=== PATIENT | female | born 1975 | race American Indian/Alaskan Native ===

== ENCOUNTER 2020-09-28 08:11 | Inpatient (IN) | payer OTHER ==
[2020-09-28 10:03] LABS: Basophils % (Auto) 0.6 % (0.0-1.8); Eosinophils # (Auto) 0.1 K/mm3 (0.0-0.4); Eosinophils % (Auto) 0.9 % (0.0-4.3); Hematocrit 35.4 % (30.3-42.9); Hemoglobin 12.4 gm/dl (10.1-14.3); Lymphocytes % (Auto) 16.9 % (13.4-35.0); Mean Corpuscular HGB Conc 35 % (30-34); Mean Corpuscular Volume 92 fl (79-97); Monocytes # (Auto) 0.6 K/mm3 (0.0-0.8); Monocytes % (Auto) 9.4 % (0.0-7.3); Platelet Count 180 K/mm3 (140-440); Red Blood Count 3.87 M/mm3 (3.65-5.03); Red Cell Distribution Width 17.6 % (13.2-15.2)
[2020-09-28] MEDS ORDERED: LIDOCAINE (2%) 20 MG/1 ML VIAL 20 ML MDV INFILTRATI SCH (10:30)
[2020-09-28] MEDS ORDERED: MINERAL OIL 30 ML ORAL LIQD PO PRN (10:30)
[2020-09-28] MEDS ORDERED: LACTATED RINGERS 1,000 ML IV SCH (10:30)
[2020-09-28] MEDS ORDERED: OXYTOCIN DRIP 30 UNITS/500 ML BAG IV SCH ×2 (11:00)
[2020-09-28] MEDS ORDERED: TERBUTALINE 1 MG/1 ML INJ SUB-Q PRN (11:00)
[2020-09-28] MEDS ORDERED: miSOPROStol 25 MCG TAB VG PRN (11:00)
[2020-09-28] MEDS ORDERED: ePHEDrine SULFATE 50 MG/1 ML INJ IV PRN (11:00)
[2020-09-28] MEDS ORDERED: DINOPROSTONE 10 MG VAG SUPP VG ONE (18:00)
[2020-09-28 18:18] LABS: Hematocrit 38.9 % (30.3-42.9); Hemoglobin 12.9 gm/dl (10.1-14.3); Mean Corpuscular HGB Conc 33 % (30-34); Mean Corpuscular Volume 93 fl (79-97); Platelet Count 187 K/mm3 (140-440); Red Cell Distribution Width 17.6 % (13.2-15.2)
[2020-09-28 18:38] LABS: Alanine Aminotransferase 15 units/L (7-56); Uric Acid 4.3 mg/dL (3.5-7.6)
[2020-09-28 19:20] LABS: Bacteria,Urine 2+ /HPF (Negative); Bilirubin,Urine NEG (Negative); Blood,Urine NEG (Negative); Color,Urine Yellow (Yellow); Mucus,Urine FEW /HPF; Urobilinogen,Urine < 2.0 mg/dL (<2.0)
[2020-09-28] MEDS: BUTORPHANOL 2 MG/1 ML INJ IV PRN ×2 (21:02→22:46)
[2020-09-28] MEDS ORDERED: ZOLPIDEM 5 MG TAB PO PRN (21:09)
[2020-09-29] MEDS: BUTORPHANOL 2 MG/1 ML INJ IV PRN ×2 (00:48→04:30)
[2020-09-29] MEDS ORDERED: BICITRA ORAL LIQD 30ML PO ONE (05:09)
--- NOTE | 2020-09-29 05:33 | Anesthesia Day of Surgery ---
Anesthesia Day of Surgery - Day of Surgery Patient Examined: Yes Patient H&P Reviewed: Yes Patient is NPO: Yes Beta Blockers: No Cardiac Clearance: No Pulmonary Clearance: No Edmar's Test: N/A
[2020-09-29] MEDS ORDERED: NALOXONE 0.4 MG/1 ML INJ IV PRN ×2 (05:35→06:00)
[2020-09-29] MEDS ORDERED: ONDANSETRON 4 MG/2 ML INJ IV PRN (05:35)
[2020-09-29] MEDS ORDERED: HYDROmorphone 1 MG/1 ML INJ IV PRN (05:35)
--- NOTE | 2020-09-29 05:35 | Anesthesia Consultation ---
Anesthesia Consult and Med Hx Date of service: 09/29/20 - Airway Anesthetic Teeth Evaluation: Caps ROM Head & Neck: Adequate Mental/Hyoid Distance: Adequate Mallampati Class: Class II Intubation Access Assessment: Probably Good - Pulmonary Exam CTA: Yes - Cardiac Exam Cardiac Exam: RRR - Pre-Operative Health Status ASA Pre-Surgery Classification: ASA2, Emergency Proposed Anesthetic Plan: Spinal - Pulmonary Hx Smoking: No Hx Asthma: Yes (exercise induced) Hx Respiratory Symptoms: No SOB: No COPD: No Home Oxygen Therapy: No Hx Pneumonia: No Hx Sleep Apnea: No - Cardiovascular System Hx Hypertension: No Hx Coronary Artery Disease: No Hx Heart Attack/AMI: No Hx Angina: No Hx Percutaneous Transluminal Coronary Angioplasty (PTCA): No Hx Cardia Arrhythmia: No Hx Pacemaker: No Hx Internal Defibrillator: No Hx Valvular Heart Disease: No Hx Heart Murmur: No Hx Peripheral Vascular Disease: No - Central Nervous System Hx Neuromuscular Disorder: No Hx Seizures: No CVA: No Hx Back Pain: No Hx Psychiatric Problems: No - Gastrointestinal Hx Ulcer: No Hx Gastroesophageal Reflux Disease: Yes - Endocrine Hx Renal Disease: No Hx End Stage Renal Disease: No Hx Cirrhosis: No Hx Liver Disease: No Hx Insulin Dependent Diabetes: No Hx Non-Insulin Dependent Diabetes: Yes (gestational ) Hx Thyroid Disease: No Hx Hypothyroidism: No Hx Hyperthyroidism: No - Hematic Hx Anemia: No Hx Sickle Cell Disease: No - Other Systems Hx Alcohol Use: Yes (socially prior to ) Hx Substance Use: No Hx Cancer: No Hx Obesity: No
--- NOTE | 2020-09-29 05:59 | Procedure Note ---
OB Delivery Note - Delivery Date of Delivery: 09/29/20 Surgeon: DUSTIN DICKSON Estimated blood loss: 200cc - Vaginal Delivery presentation: vertex Delivery position: OA Intrapartum events: mult. late decelerations Delivery monitor: external FHT, external uterine Route of delivery: Delivery placenta: spontaneous Delivery cord: 3 umbilical vessels Episiotomy: none Delivery laceration: 2nd degree Delivery repair: vicryl Anesthesia: local Delivery comments: The patient was taken back to the operating room to proceed with a primary delivery for nonreassuring heart rate tracing. While the patient was attempting to receive her anesthesia she complained of the urge to push. Vaginal exam was performed that demonstrated the patient was complete complete +2. The patient pushed to deliver a live-born female infant with Apgars of 7 and 8 weight 6 pounds 8 ounces. After delivery of the head the shoulders delivered without difficulty. The infant was bulb suctioned and the cord was clamped and cut and the infant was placed on the patient's abdomen. The placenta delivered spontaneously intact with a three-vessel cord. The patient sustained a midline second-degree perineal laceration that was injected with lidocaine and repaired with 2-0 Vicryl in normal fashion. Estimated blood loss of 200 mL. - Infant A at 1 minute: 7 at 5 minutes: 8 Infant Gender: Female (Weight 6 pounds 8 ounces)
--- NOTE | 2020-09-29 05:59 | History and Physical Report ---
History of Present Illness Date of examination: 09/28/20 Date of admission: 09/28/20 08:11 Chief complaint: IOL History of present illness: 44y/o @ 39+2 weeks being induced for GDM and advanced maternal age. course also complicated by Covid X during the . The patient initiated her care in the first trimester. Past History Past Medical History: asthma, other Past Surgical History: no surgical history Social history: - Obstetrical History Expected Date of Delivery: 10/03/20 Actual Gestation: 39 Week(s) 3 Day(s) : 1 Para: 0 Hx # Term Pregnancies: 0 Number of Pregnancies: 0 Spontaneous Abortions: 0 Induced : 0 Number of Living Children: 0 Medications and Allergies Allergies Allergy/AdvReac Type Severity Reaction Status Date / Time Penicillins Allergy Hives Verified 09/28/20 08:33 Home Medications Medication Instructions Recorded Confirmed Last Taken Type Aspirin [Adult Aspirin] 81 mg PO DAILY 09/28/20 09/28/20 09/27/20 History Vitamin 1 tab PO DAILY 09/28/20 09/28/20 09/27/20 History Vitamin D3 2,000 UNIT CAP 2,000 units PO DAILY 09/28/20 09/28/20 09/27/20 Hi story Active Meds: Active Medications Butorphanol Tartrate (Butorphanol 2 Mg/1 Ml Inj) 2 mg IV Q2H PRN PRN Reason: Labor Pain Last Admin: 09/29/20 04:30 Dose: 2 mg Documented by: Ephedrine Sulfate (Ephedrine Sulfate 50 Mg/1 Ml Inj) 10 mg IV Q2M PRN PRN Reason: Hypotension Famotidine (Famotidine 20 Mg/2 Ml Inj) 20 mg IV PREOP NR Stop: 09/29/20 23:59 Last Admin: 09/29/20 05:19 Dose: 20 mg Documented by: Fluconazole (Fluconazole 100 Mg Tab) 150 mg PO QDAY FLORI; Protocol Hydromorphone HCl (Hydromorphone 1 Mg/1 Ml Inj) 0.5 mg IV Q5M PRN PRN Reason: BREAK Stop: 09/29/20 23:59 Oxytocin/Sodium Chloride (Pitocin/Ns 30 Unit/500ml) 30 units in 500 mls @ 2 mls/hr IV TITR FLORI; Protocol Lactated Ringer's (Lactated Ringers) 1,000 mls @ 125 mls/hr IV DIRECT FLORI Last Admin: 09/28/20 12:59 Dose: 125 mls/hr Documented by: Oxytocin/Sodium Chloride (Pitocin/Ns 30 Unit/500ml) 30 units in 500 mls @ 40 mls/hr IV TITR FLORI; Protocol Clindamycin HCl (Cleocin 900 Mg/50 Ml) 900 mg in 50 mls @ 100 mls/hr IV PREOP NR; Protocol Stop: 09/29/20 23:59 Lidocaine (Lidocaine (2%) 20 Mg/1 Ml Vial 20 Ml Mdv) 20 ml INFILTRATI ONCE FLORI Stop: 09/29/20 10:29 Metoclopramide HCl (Metoclopramide 10 Mg/2 Ml Inj) 10 mg IV PREOP NR Stop: 09/29/20 23:59 Last Admin: 09/29/20 05:19 Dose: 10 mg Documented by: Mineral Oil (Mineral Oil 30 Ml Oral Liqd) 30 ml PO QHS PRN PRN Reason: Constipation Misoprostol (Misoprostol 25 Mcg Tab) 25 mcg VG Q4H PRN PRN Reason: Dilation Last Admin: 09/28/20 12:24 Dose: 25 mcg Documented by: Naloxone HCl (Naloxone 0.4 Mg/1 Ml Inj) 0.2 mg IV Q2MIN PRN PRN Reason: Res Rate </= 8 or 02 SAT < 92% Ondansetron HCl (Ondansetron 4 Mg/2 Ml Inj) 4 mg IV Q8H PRN PRN Reason: Nausea And Vomiting Terbutaline Sulfate (Terbutaline 1 Mg/1 Ml Inj) 0.25 mg SUB-Q ONCE PRN PRN Reason: Hyperstimulation/Hypertonicity Zolpidem Tartrate (Zolpidem 5 Mg Tab) 5 mg PO QHS PRN PRN Reason: Sleep Last Admin: 09/28/20 21:14 Dose: 5 mg Documented by: Review of Systems All systems: negative Genitourinary: no leakage of fluid, no contractions - Vital Signs Vital signs: Vital Signs Temp Pulse Resp BP 98.0 F 101 H 18 140/84 09/28/20 08:36 09/28/20 08:36 09/28/20 08:36 09/28/20 08:36 Temp Pulse Resp BP Pulse Ox 98.1 F 98 H 12 137/69 99 09/29/20 02:55 09/29/20 05:52 09/28/20 18:53 09/29/20 02:55 09/29/20 05:52 - Physical Exam Breasts: Positive: deferred Cardiovascular: Regular rate Lungs: Positive: Clear to auscultation Abdomen: Positive: normal appearance Results Result Diagrams: 09/28/20 18:01 09/28/20 18:04 Abnormal lab results 09/28/20 09/28/20 09/28/20 Range/Units 09:20 18:01 19:38 MCHC 35 H (30-34) % RDW 17.6 H 17.6 H (13.2-15.2) % Trigg % (Auto) 9.4 H (0.0-7.3) % Lymph # (Auto) 1.0 L (1.2-5.4) K/mm3 Seg Neutrophils % 72.2 H (40.0-70.0) % POC Glucose 122 H (70-105) mg/dL All other labs normal. Assessment and Plan - Patient Problems (1) GDM (gestational diabetes mellitus), class A1 Current Visit: Yes Status: Acute Plan to address problem: admit for IOL (2) Advanced maternal age (AMA), 40 years or greater Current Visit: Yes Status: Acute
[2020-09-29] MEDS ORDERED: METOCLOPRAMIDE 10 MG/2 ML INJ IV NR (06:00)
[2020-09-29] MEDS ORDERED: SIMETHICONE 80 MG CHEW TAB PO PRN (06:00)
[2020-09-29] MEDS ORDERED: OXYTOCIN DRIP 30 UNITS/500 ML BAG IV SCH (06:00)
[2020-09-29] MEDS ORDERED: MAGNESIUM HYDROXIDE (MOM) ORAL LIQD UDC PO PRN (06:00)
[2020-09-29] MEDS ORDERED: MORPHINE 4 MG/1 ML INJ IV PRN (06:00)
[2020-09-29] MEDS ORDERED: ACETAMINOPHEN 325 MG TAB PO PRN (06:00)
[2020-09-29] MEDS ORDERED: KETOROLAC 30 MG/1 ML INJ IV PRN (06:00)
[2020-09-29] MEDS ORDERED: WITCH HAZEL/ GLYCERIN PAD TP PRN (06:00)
[2020-09-29] MEDS ORDERED: oxyCODONE /ACETAMINOPHEN 5-325MG TAB PO PRN (06:00)
[2020-09-29] MEDS ORDERED: LANOLIN/ZINC/DIMETHICONE (LANSINOH) 7 GM TP PRN (06:00)
[2020-09-29] MEDS ORDERED: FAMOTIDINE 20 MG/2 ML INJ IV NR (06:00)
--- NOTE | 2020-09-29 06:00 | Operative Report ---
Operative Report Operative Report: Date of surgery: September 29, 2020 Preoperative diagnosis: at 39+3 weeks; gestational diabetes; nonre assuring heart rate tracing; advanced maternal age Postoperative diagnosis: Same as above Procedure: Primary low transverse delivery Surgeon: Victoria Arora M.D.[] Anesthesia:[default value] Estimated blood loss:[default value] Findings:[default value] Indications:[default value] Procedure: The patient was taken to the operating room and given regional anesthesia without complication. She was prepped and draped in a normal sterile fashion. A Pfannenstiel skin incision was made down to layer the fascia which was nicked in the midline extended laterally with the Bovie cautery. The superior aspect of the rectus fascia was grasped with Linwood clamps x2 and the rectus muscles off sharply. This was done in inferior fashion as well. The rectus muscle midline and peritoneum entered bluntly. An Willis retractor was then inserted. A bladder blade was placed. The vesicouterine peritoneum was then entered sharply with Metzenbaum scissors. A bladder flap was created digitally. A low transverse uterine incision was then made and extended digitally. There was clear fluid upon entry into the uterine cavity. The head was delivered through the incision with fundal pressure. The cord was clamped and cut x2 and infant was passed off to pediatrics. The placenta was then manually extracted. The uterus was then exteriorized and cleared of clots and debris. The uterine incision was then closed in a running locked fashion with 0 Vicryl additional imbricating stitch was applied for 2 layer closure. The serosa was then reapproximated with 3-0 Vicryl. The posterior cul-de-sac was then copiously irrigated. The uterus was replaced back into the abdomen and pelvis were the gutters were then irrigated. The Willis retractor was then removed. The peritoneum was then reapproximated with 3-0 Vicryl incorporating the rectus muscle. The fascia was then closed with 0 Vicryl in a running fashion. The skin was then reapproximated with 3-0 Monocryl on a Clarke needle subcuticular fashion. Steri-Strips to place across the incision and a Crede procedures performed at the end of the surgery. A pressure dressing was applied to the incision. The surgery productive of a liveborn[default value] with Apgars of[default value]. The patient was taken to the recovery room in stable condition. All sponge laps and needle counts correct x2.
[2020-09-29] MEDS ORDERED: LIDOCAINE MPF (2%) 20 MG/1 ML VIAL 5 ML ONE (06:23)
[2020-09-29] MEDS ORDERED: FLUCONAZOLE 100 MG TAB PO SCH (10:00)
[2020-09-29] MEDS: IBUPROFEN 600 MG TAB PO PRN ×2 (18:05→23:48)
[2020-09-29 18:46] LABS: Hematocrit 33.4 % (30.3-42.9); Hemoglobin 11.2 gm/dl (10.1-14.3)
[2020-09-30] MEDS ORDERED: DIPHtheria,PERTUSSIS(ACELL),TETANUS VACCINE/PF 0.5 ML VIAL IM ONE (06:00)
--- NOTE | 2020-09-30 06:14 | Post Anesthesia Evaluation ---
- Post Anesthesia Evaluation Patient Participated: Yes Airway Patent: Yes Stable Respiratory Function: Yes Nausea/Vomiting: No Temp > 96.8F: Yes Pain Manageable: Yes Adequeate Hydration: Yes Anesthesia Complications: No Block Receding Appropriately: Not Applicable Patient on Ventilator: No
--- NOTE | 2020-09-30 08:28 | Progress Note ---
Assessment and Plan A: PPD1 s/p Vital signs and labs stable P: Discharge to home today Subjective - Subjective Date of service: 09/30/20 Principal diagnosis: s/p Interval history: PPD1 s/p Patient reports: appetite normal, voiding normally, pain well controlled, ambulating normally [place]: doing well, bottle feeding (both) Objective - Vital Signs Latest vital signs: Vital Signs Temp Pulse Resp BP Pulse Ox 09/29/20 23:48 18 09/29/20 23:29 98.4 F 79 20 117/62 96 09/29/20 17:28 98.4 F 77 18 131/76 98 09/29/20 13:12 97.9 F 105 H 20 121/78 97 Intake and Output 09/29/20 09/30/20 09/30/20 23:59 07:59 15:59 Intake Total 240 200 Output Total 525 Balance -285 200 Intake: Oral 240 200 Output: Urine 525 Void 525 Other: Total, Intake Amount 240 200 Total, Output Amount 525 # Voids Void 3 1 - Exam Abdomen: Present: soft. Absent: distention, tenderness, guarding Uterus: Present: firm, fundal height at umbilicus. Absent: bogginess, tenderness Extremities: Present: normal
--- NOTE | 2020-09-30 08:30 | Discharge Summary ---
Providers - Providers Date of Admission: 09/28/20 08:11 Date of discharge: 09/30/20 Attending physician: DUSTIN DICKSON Primary care physician: DUSTIN DICKSON Hospitalization Reason for admission: induction of labor (for A1GDM and AMA), IUP at term Delivery: Episiotomy: none Laceration: 2nd degree Other procedures: none complications: none Discharge diagnosis: IUP at term delivered [place] baby: female Condition at discharge: Good Disposition: DC-01 TO HOME OR SELFCARE Plan - Discharge Medications Prescriptions: Ibuprofen [Motrin 600 MG tab] 600 mg PO Q6H PRN #60 tablet PRN Reason: Pain, Mild (1-3) - Provider Discharge Summary Activity: routine, no sex for 6 weeks, no heavy lifting 4 weeks, no strenuous exercise Diet: routine Instructions: routine Additional instructions: [] Smoking cessation referral if applicable(refer to patient education folder for contact #) [] Refer to [facility] Book[facility] Call your doctor immediately for: * Fever > 100.5 * Heavy vaginal bleeding ( >1 pad per hour) * Severe persistent headache * Shortness of breath * Reddened, hot, painful area to leg or breast * Drainage or odor from incision. * Keep incision clean and dry at all times and follow doctor's instructions regarding bathing/showering - Follow up plan Follow up: YUDELKA EID CNM [Advanced Practice Nurse] - 14 Days (Please call office to schedule appointment.)
[2020-09-30 08:35] VITALS: BP 114/72
[2020-09-30] MEDS ORDERED: MEASLES, MUMPS & RUBELLA 12,500 UNIT/0.5 ML VACCINE SUB-Q ONE (10:57)
[2020-09-30] MEDS: IBUPROFEN 600 MG TAB PO PRN (11:20)
== END 2020-09-30 12:10 | disposition home or self-care (01) | DRG 807 ==
LOC: LD 08:11 → OB 09-29 08:37
PROVIDERS: ADMIT Obstetrics & Gynecology; ATTEND Obstetrics & Gynecology
PROC: 10E0XZZ Delivery of Products of Conception, External Approach (ICD-10-PCS; principal; 2020-09-29)
PROC: 0KQM0ZZ Repair Perineum Muscle, Open Approach (ICD-10-PCS; 2020-09-29)
DX: O24.429 Gestational diabetes mellitus in childbirth, unspecified control (principal); Z37.0 Single live birth; O99.52 Diseases of the respiratory system complicating childbirth; O76 Abnormality in fetal heart rate and rhythm complicating labor and delivery; J45.909 Unspecified asthma, uncomplicated; Z3A.39 39 weeks gestation of pregnancy; Z79.82 Long term (current) use of aspirin; Z79.899 Other long term (current) drug therapy; Z88.0 Allergy status to penicillin; O70.1 Second degree perineal laceration during delivery; Z20.822 Contact with and (suspected) exposure to COVID-19
CPT/HCPCS: 36415; 59200; 81001; 82565; 82962; 84450; 84460; 84550; 85014; 85018; 85025; 85027; 86592; 86850; 86900; 86901; 90471; 90707; 90715; G0378; J0595; J2765; J3490; J7120; U0003